=== PATIENT | male | born 1945 | race Caucasian/White ===

== ENCOUNTER 2018-06-24 05:31 | Outpatient (CLI) | payer MEDICARE ==
[~2018-06-24] VITALS: Ht 177.8 cm; Wt 102.5 kg
[2018-06-25] MEDS ORDERED: METF-399 PO (12:10)
[2018-06-25] MEDS ORDERED: ROSU10TA PO (12:10)
[2018-06-25] MEDS ORDERED: INSU100V16 SQ (12:10)
[2018-06-25] MEDS ORDERED: CALC600T12 PO (12:10)
[2018-06-25] MEDS ORDERED: VENL150C PO (12:10)
[2018-06-25] MEDS ORDERED: INSU100V6 SQ (12:10)
[2018-06-25] MEDS ORDERED: CHOL10007 PO (12:10)
[2018-06-25] MEDS ORDERED: MELO15TA39 PO (12:10)
[2018-06-25] MEDS ORDERED: ARIP15TA4 PO (12:10)
[2018-06-25] MEDS ORDERED: MOME13HF4 IH (12:10)
[2018-06-25] MEDS ORDERED: LISI40TA PO (12:10)
[2018-06-25] MEDS ORDERED: TIOT18CA2 IH (12:10)
[2018-06-25] MEDS ORDERED: POLY17PO6 PO (12:10)
== END 2018-06-25 12:17 | disposition home or self-care (01) ==
LOC: PREOP 05:31
PROVIDERS: ATTEND Urology
DX: Z01.818 Encounter for other preprocedural examination (principal)

== ENCOUNTER 2018-06-29 07:46 | Day surgery (SDC) | payer MEDICARE, MEDICAID, OTHER ==
[~2018-06-29] VITALS: Ht 177.8 cm; Wt 102.5 kg
[~2018-06-29 07:46] MED LIST: ARIP15TA4 PO; CALC600T12 PO; CHOL10007 PO; INSU100V16 SQ; INSU100V6 SQ; LISI40TA PO; MELO15TA39 PO; METF-399 PO; MOME13HF4 IH; POLY17PO6 PO; ROSU10TA PO; TIOT18CA2 IH; VENL150C PO
[2018-06-29 08:00] VITALS: BP 176/97
[2018-06-29] MEDS ORDERED: cefTRIAXone FOR IV USE 1,000 MG in NS (IVPB) 50 ML IV ONE (08:00)
--- NOTE | 2018-06-29 08:29 | Progress Note-Pre Operative ---
Pre-Operative Progress Note H&P Reviewed The H&P was reviewed, patient examined and no changes noted. Date Seen by Provider: Jun 29, 2018 Time Seen by Provider: 08: Date H&P Reviewed: Jun 29, 2018 Time H&P Reviewed: : Pre-Operative Diagnosis: MULTIPLE BLADDER TUMORS (SMALL) DA NAVAS MD Jun 29, 2018 8:29 am
[2018-06-29] MEDS: LACTATED RINGERS 1,000 ML IV PRN ×2 (08:30→10:00)
--- NOTE | 2018-06-29 08:34 | Progress Note-Post Operative ---
Post-Operative Progess Note Surgeon (s)/Chainstitch Tunnel Elastic Operator (s) Surgeon DA NAVAS MD Chainstitch Tunnel Elastic Operator: N/A Pre-Operative Diagnosis MULTIPLE BLADDER TUMORS (SMALL) Post-Operative Diagnosis SAME Procedure & Operative Findings Date of Procedure 06/29/18 Procedure Performed/Findings TURBT'S Anesthesia Type GENERAL Estimated Blood Loss Estimated blood loss (mL): NEGLIGIBLE Specimens/Packing Specimens Removed BLADDER TUMORS AND BASE Packing: N/A DA NAVAS MD Jun 29, 2018 8:34 am
--- NOTE | 2018-06-29 08:35 | Discharge Inst-Urology ---
Discharge Inst-Urology Discharge Medications New, Converted, or Re-newed RX: RX on Chart Patient Instructions/Follow Up Plan Please make appointment to been seen in office in 2 weeks. Keep bowels soft and moving Increase oral fluids for 48 hours and then as needed. Diet and Activity as tolerated. If questions or concerns contact your physician Or seek help at emergency department. DA NAVAS MD Jun 29, 2018 8:35 am
[2018-06-29] MEDS ORDERED: ONDANSETRON 4 MG/2 ML (SDV) Z0FRAN ONE (08:42)
[2018-06-29] MEDS ORDERED: proPOfol 200 MG/20 ML (DIPRIVAN) VIAL IV ONE (08:42)
[2018-06-29] MEDS ORDERED: LIDOCAINE PF 2% 2 ML (XYLOCAINE) VIAL ONE (08:42)
[2018-06-29] MEDS ORDERED: fentaNYL INJECTION 100 MCG/2 ML AMP ONE ×2 (08:42→09:45)
[2018-06-29] MEDS ORDERED: SEVOFLURANE (ULTANE) 15 ML INHAL SOLN ONE (08:42)
[2018-06-29] MEDS ORDERED: inSUlin ASPART (NovoLOG) 1 UNIT/0.01 ML (CHARGE PER UNIT) IV ONE ×2 (08:45→09:30)
[2018-06-29] MEDS ORDERED: MIDAZOLAM 2 MG/2 ML (VERSED) VIAL IV ONE (08:45)
[2018-06-29] MEDS ORDERED: PHENYLEPHRINE 100 MCG/ML 10 ML (ANESTHESIA) SYR ONE (10:07)
[2018-06-29] MEDS ORDERED: morphine INJ 10 MG/ML 1ML (SYR OR VIAL) IVP ONE (10:15)
[2018-06-29] MEDS ORDERED: ONDANSETRON 4 MG/2 ML (SDV) Z0FRAN IVP PRN (10:15)
--- NOTE | 2018-06-29 11:05 | Anesthesia-General Post-Op ---
General Patient Condition Mental Status/LOC: Same as Preop Cardiovascular: Satisfactory Nausea/Vomiting: Absent Respiratory: Satisfactory Pain: Controlled Complications: Absent Post Op Complications Complications None Follow Up Care/Instructions Patient Instructions None needed. Anesthesia/Patient Condition Patient Condition Patient is doing well, no complaints, stable vital signs, no apparent adverse anesthesia problems. No complications reported per nursing. SALLIE CURRY CRNA Jun 29, 2018 11:05
[2018-06-29 11:15] VITALS: BP 141/71
[2018-06-29] MEDS ORDERED: PHEN-640 PO (11:25)
[2018-06-29] MEDS ORDERED: CIPR-225 PO (11:25)
[2018-06-29 11:45] VITALS: BP 133/65
[2018-06-29 12:15] VITALS: BP 136/74
[2018-06-29] MEDS ORDERED: ONDANSETRON 4 MG/2 ML (SDV) Z0FRAN IVP ONE (12:15)
--- NOTE | 2018-06-29 13:53 | OPERATIVE REPORT ---
DATE OF SERVICE: 06/29/2018 PREOPERATIVE DIAGNOSIS: Multiple small bladder tumors. POSTOPERATIVE DIAGNOSES: 1. Multiple small bladder tumors. 2. Sub-meatal stricture. OPERATION PERFORMED: Transurethral resection of bladder tumors. OPERATION PERFORMED: Urethral dilatation and transurethral resection of bladder tumor. SURGEON: Vadim Navas MD ANESTHESIA: General. COMPLICATIONS: None. DESCRIPTION OF PROCEDURE: Under satisfactory general anesthesia, the patient in lithotomy position, genitalia were prepped and draped in usual sterile fashion. Attempt to pass a 24-Emirati at sub-meatal area due to a stricture. A 22-Emirati passed easily. I dilated the stricture all the way to the bladder up till 28-Emirati. The resectoscope would not go easily. I did not want to force it. So, I went ahead with the cystoscope since the tumors were very small and very superficially looking and all the way to the bladder visualized. Again, the very small bladder tumors, one anterior wall, one posterior wall and one close to the bladder neck. They were all resected with the biopsy forceps. The relatively bigger one obtained a part of the base to rule out invasion. They were all sent for pathology. There was no bleeding. The bladder was evacuated. The cystoscope was removed. The patient tolerated the procedure and anesthesia well and was sent to recovery room in stable condition. Job ID: [id number] DocumentID: [id number] Dictated Date: 06/29/2018 10:20:15 Backup Administrator Date: 06/29/2018 13:52:49 Dictated By: VADIM NAVAS MD
== END 2018-06-29 12:30 | disposition home or self-care (01) ==
LOC: SDC 07:46
PROVIDERS: ATTEND Urology
DX: C67.9 Malignant neoplasm of bladder, unspecified (principal); N35.911 Unspecified urethral stricture, male, meatal; Z11.2 Encounter for screening for other bacterial diseases; N40.0 Benign prostatic hyperplasia without lower urinary tract symptoms; E11.9 Type 2 diabetes mellitus without complications; J44.9 Chronic obstructive pulmonary disease, unspecified; I10 Essential (primary) hypertension; F32.9 Major depressive disorder, single episode, unspecified; Z87.891 Personal history of nicotine dependence; F41.9 Anxiety disorder, unspecified; Z79.899 Other long term (current) drug therapy; Z79.4 Long term (current) use of insulin
CPT/HCPCS: 82962; 87081

== ENCOUNTER 2019-04-18 10:22 | Outpatient (CLI) | payer MEDICARE, MEDICAID ==
[~2019-04-18] VITALS: Ht 177.8 cm; Wt 102.5 kg
[~2019-04-18 10:22] MED LIST changes: +CIPR-225 PO; +PHEN-640 PO; -ROSU10TA PO; +ROSU10TA22 PO
[2019-04-18] MEDS ORDERED: ACET325T49 PO (10:27)
[2019-04-18] MEDS ORDERED: CAPS42.58 TP (10:27)
[2019-04-18] MEDS ORDERED: ROSU20TA31 PO (10:27)
[2019-04-19] MEDS ORDERED: SULF1TAB35 PO ×2 (08:30→12:18)
[2019-04-19] MEDS ORDERED: PHEN-640 PO ×2 (08:30→12:18)
== END 2019-04-18 10:35 | disposition home or self-care (01) ==
LOC: PREOP 10:22
PROVIDERS: ATTEND Urology
DX: Z01.818 Encounter for other preprocedural examination (principal)

== ENCOUNTER 2019-04-19 06:00 | Day surgery (SDC) | payer MEDICARE, MEDICAID ==
[2019-04-19] VITALS (11 sets, daily range): BP systolic 136–173; BP diastolic 80–96
[~2019-04-19] VITALS: Ht 177.8 cm; Wt 100.9 kg
[~2019-04-19 06:00] MED LIST changes: +ACET325T49 PO; +CAPS42.58 TP; +ROSU20TA31 PO
[2019-04-19] MEDS ORDERED: cefTRIAXone FOR IV USE 1,000 MG in WATER (STERILE) FOR INJECTION 10 ML IV ONE (06:30)
[2019-04-19] MEDS: LACTATED RINGERS 1,000 ML IV PRN ×2 (06:37→09:59)
[2019-04-19] MEDS ORDERED: inSUlin ASPART (NovoLOG) 1 UNIT/0.01 ML (CHARGE PER UNIT) IV ONE ×2 (06:45→08:00)
--- NOTE | 2019-04-19 06:58 | Progress Note-Pre Operative ---
Pre-Operative Progress Note H&P Reviewed The H&P was reviewed, patient examined and no changes noted. Date Seen by Provider: Apr 19, 2019 Time Seen by Provider: 06:58 Date H&P Reviewed: Apr 19, 2019 Time H&P Reviewed: 06:58 Pre-Operative Diagnosis: BLADDER TUMORS DA NAVAS MD Apr 19, 2019 06:58
--- NOTE | 2019-04-19 07:10 | Progress Note-Post Operative ---
Post-Operative Progess Note Surgeon (s)/Facilities Supervisor (s) Surgeon DA NAVAS MD Facilities Supervisor: NONE Pre-Operative Diagnosis BLADDER TUMORS Post-Operative Diagnosis SAME Procedure & Operative Findings Date of Procedure 04/19/19 Procedure Performed/Findings TURBT'S Anesthesia Type GENERAL Estimated Blood Loss Estimated blood loss (mL): NEGLIGIBLE Specimens/Packing Specimens Removed BLADDER TUMORS AND BASES Packing: NONE DA NAVAS MD Apr 19, 2019 07:10
--- NOTE | 2019-04-19 07:12 | Discharge Inst-Urology ---
Discharge Inst-Urology Discharge Medications New, Converted, or Re-newed RX: RX on Chart Patient Instructions/Follow Up Plan Please make appointment to been seen in office in 4 weeks. Increase oral fluids for 48 hours and then as needed. Diet and Activity as tolerated. If questions or concerns contact your physician Or seek help at emergency department. DA NAVAS MD Apr 19, 2019 07:12
[2019-04-19] MEDS ORDERED: fentaNYL INJECTION 100 MCG/2 ML AMP ONE (08:10)
[2019-04-19] MEDS ORDERED: ONDANSETRON 4 MG/2 ML (SDV) Z0FRAN ONE (08:11)
[2019-04-19] MEDS ORDERED: proPOfol 200 MG/20 ML (DIPRIVAN) VIAL IV ONE (08:11)
[2019-04-19] MEDS ORDERED: LIDOCAINE PF 2% 5 ML (XYLOCAINE) VIAL ONE (08:11)
[2019-04-19] MEDS ORDERED: MIDAZOLAM 2 MG/2 ML (VERSED) VIAL ONE (08:11)
--- NOTE | 2019-04-19 08:13 | NUR ---
Engaged in rapport building with pt, his daughter and son in law. No concerns expressed at this time. Provided active listening and compassionate presence. Pt and his family are from [place], [place].
[2019-04-19] MEDS ORDERED: ROCURONIUM 10 MG/ML 5 ML SYRINGE IV ONE (08:19)
[2019-04-19] MEDS ORDERED: SULF1TAB35 PO ×2 (08:30→12:18)
[2019-04-19] MEDS ORDERED: PHEN-640 PO ×2 (08:30→12:18)
[2019-04-19] MEDS ORDERED: ONDANSETRON 4 MG/2 ML (SDV) Z0FRAN IVP PRN (09:30)
[2019-04-19] MEDS ORDERED: MEPERIDINE (DEMEROL) INJ 50 MG/ML IVP ONE (09:30)
[2019-04-19] MEDS ORDERED: morphine INJ 10 MG/ML 1ML (SYR OR VIAL) IVP ONE (09:30)
[2019-04-19] MEDS ORDERED: GLYCOPYRROLATE 0.2 MG/ML (ROBINUL) 2 ML VIAL ONE (09:52)
[2019-04-19] MEDS ORDERED: NEOSTIGMINE 3 MG/3 ML VIAL ONE (09:52)
[2019-04-19] MEDS ORDERED: SEVOFLURANE (ULTANE) 15 ML INHAL SOLN ONE (09:52)
--- NOTE | 2019-04-19 11:36 | Anesthesia-General Post-Op ---
General Patient Condition Mental Status/LOC: Same as Preop Cardiovascular: Satisfactory Nausea/Vomiting: Absent Respiratory: Satisfactory Pain: Controlled Complications: Absent Post Op Complications Complications None Follow Up Care/Instructions Patient Instructions None needed. Anesthesia/Patient Condition Patient Condition Patient was seen after the procedure and he was doing well, no complaints, stable vital signs, no apparent adverse anesthesia problems. HEATHER KUMAR DO Apr 19, 2019 11:36
--- NOTE | 2019-04-19 13:02 | OPERATIVE REPORT ---
DATE OF SERVICE: 04/19/2019 PREOPERATIVE DIAGNOSIS: Multiple bladder tumors. POSTOPERATIVE DIAGNOSIS: Multiple bladder tumors. OPERATION PERFORMED: Transurethral resection of multiple bladder tumors, small and one medium. SURGEON: Vadim Navas MD ANESTHESIA: General. COMPLICATIONS: None. DESCRIPTION OF PROCEDURE: Under satisfactory general anesthesia, the patient in lithotomy position, genitalia were prepped and draped in the usual sterile fashion. Urethra was dilated with Thurston sound to #30 Anguillan easily. No need for meatotomy. Previous meatal stenosis resolved. 27-Anguillan Parson resectoscope was introduced in the bladder. I can visualize a small bladder tumor in the floor of the bladder on the left side with some small bladder tumor upon the top on the left side again closed to the bladder neck and one medium size at that area. I went ahead and shelled the small bladder tumor. Got a piece of the base, sent separately. The other small ones again shelled easily and cauterized. The medium bladder tumor was resected and along with its base and then cauterized. There was no further bladder tumor visualized. The chips were sent separately for pathology. Hemostasis was complete. No need for a catheter. Bladder was evacuated. The resectoscope was removed. The patient tolerated the procedure and anesthesia well and was sent to recovery room in stable condition. Job ID: [id number] DocumentID: [id number] Dictated Date: 04/19/2019 10:10:29 Acquisitions Logistics Analyst Date: 04/19/2019 13:02:11 Dictated By: VADIM NAVAS MD
== END 2019-04-19 12:30 | disposition home or self-care (01) ==
LOC: SDC 06:00
PROVIDERS: ATTEND Urology
DX: C67.9 Malignant neoplasm of bladder, unspecified (principal); N35.911 Unspecified urethral stricture, male, meatal; N30.20 Other chronic cystitis without hematuria; J44.9 Chronic obstructive pulmonary disease, unspecified; I10 Essential (primary) hypertension; E11.9 Type 2 diabetes mellitus without complications; F32.9 Major depressive disorder, single episode, unspecified; M19.91 Primary osteoarthritis, unspecified site; N40.0 Benign prostatic hyperplasia without lower urinary tract symptoms; N52.9 Male erectile dysfunction, unspecified; F41.9 Anxiety disorder, unspecified; E78.5 Hyperlipidemia, unspecified; H91.90 Unspecified hearing loss, unspecified ear; Z87.891 Personal history of nicotine dependence; Z79.4 Long term (current) use of insulin; Z79.899 Other long term (current) drug therapy
CPT/HCPCS: 82962; 87081; 88305; 88307

== ENCOUNTER 2019-11-11 09:30 | Outpatient (CLI) | payer MEDICARE, MEDICAID ==
[~2019-11-11] VITALS: Ht 177.8 cm
[~2019-11-11 09:30] MED LIST changes: +CAPS42.513 TP; -CAPS42.58 TP; -ROSU20TA31 PO; +ROSU20TA32 PO; +SULF1TAB35 PO
[2019-11-15] MEDS ORDERED: BUPR300T51 PO (07:27)
[2019-11-15] MEDS ORDERED: ARIP10TA17 PO (07:27)
[2019-11-15] MEDS ORDERED: VENL150T PO (07:27)
[2019-11-15] MEDS ORDERED: SULF1TAB35 PO (07:42)
[2019-11-15] MEDS ORDERED: PHEN-640 PO (07:42)
== END 2019-11-11 09:59 | disposition home or self-care (01) ==
LOC: PREOP 09:30
PROVIDERS: ATTEND Urology
DX: Z01.818 Encounter for other preprocedural examination (principal)